=== PATIENT | female | born 1950 | race Caucasian/White ===

== ENCOUNTER 2019-01-18 10:50 | Observation (INO) | payer MEDICARE, SELFPAY ==
[~2019-01-18 10:50] MED LIST: ISOVUE-370 76%-LOCM 1 ML ONE
--- NOTE | 2019-01-18 14:57 | CT ---
CTA BRAIN WITH AND WITHOUT CONTRAST: History: Persistent dizziness. Technique: Noncontrast enhanced CT images of the brain obtained followed by contrast enhanced CTA car otid artery and intracranial CTA. 2D and 3D reconstructed images performed on an independent 3D works tation. FINDINGS: CT images of the brain unremarkable. The visualized lung parenchyma is unremarkable. The thyroid gland is unremarkable. The aortic arch is unremarkable. The right brachiocephalic artery is patent. The right and left common carotid arteries are patent. The right and left internal carotid and php consultant al carotid arteries are patent. Vertebral basilar system is unremarkable. ICA, WILD, MCA, and STARTING GATE DRIVER vessels are patent. IMPRESSION: Unremarkable CTA neck and intracranial CTA. POS: PENNY
[2019-01-18] MEDS ORDERED: Ondansetron ODT 4 MG TAB SL PRN (15:26)
[2019-01-18] MEDS ORDERED: Ondansetron PF 4 MG/2 ML Vial IVP PRN ×2 (15:26→15:32)
[2019-01-18] MEDS ORDERED: Acetaminophen 325 MG TAB PO PRN (15:26)
[2019-01-18] MEDS ORDERED: HYDROcodone/Acetaminophen 5/325 mg Tablet PO PRN ×2 (15:26)
[2019-01-18] MEDS ORDERED: hydrALAZINE 20 MG/ML VIAL SLOW IVP PRN (15:32)
[2019-01-18] MEDS ORDERED: Ondansetron ODT 4 MG TAB PO PRN (15:32)
[2019-01-18] MEDS ORDERED: Acetaminophen 500 MG TAB PO PRN (15:32)
[2019-01-18 16:02] VITALS: BMI 27.3
[2019-01-18] MEDS: Meclizine HCl 25 MG TAB PO SCH ×2 (18:28→23:45)
[2019-01-18] MEDS: Sodium Chloride 0.9% 1,000 ML IV SCH (18:30)
[2019-01-18] MEDS ORDERED: Prevnar 13-Val Conj/PF 0.5 ML SYRINGE IM ONE (20:00)
[2019-01-18] MEDS: Famotidine 20 MG TAB PO SCH (20:50)
--- NOTE | 2019-01-18 20:55 | HP ---
PRIMARY CARE PROVIDER: Dr. Zachary Wilson in [place], [place]. CHIEF COMPLAINT: Dizziness, nausea, and vomiting. HISTORY OF PRESENT ILLNESS: This is a 68-year-old female, who presented to [facility] Emergency Department in transfer from [facility] on 01/18/2019. The patient states she suddenly developed dizziness after working outside within the last 24 hours. She denied any head injury, recent dental procedures, high altitude travel, but does admit to some cold-type symptoms over the last 2-3 weeks. The patient states she has taken [id number] preparations including NyQuil with mild relief of her symptoms. The patient admitted to associated nausea and vomiting up to two episodes with the dizziness. The patient states that her symptoms were relieved by sitting down, closing her eyes, or lying back. When she attempted to open her eyes and sit up, she became very nauseated and extremely dizzy with the room spinning. The patient denies any other chronic change to her prescription medications and states she has been compliant with her blood pressure medicines. The patient denies any other family members with similar symptoms or even prior similar episodes. The patient denied any chest pain, jaw or left arm discomfort. The patient does admit to a long-standing history of tinnitus in the right ear. In the emergency room, the patient underwent general evaluation including CT imaging of the brain showing no acute process. Metabolic screening showed a low potassium of 3.2 and EKG was unrevealing. PAST MEDICAL HISTORY: 1. Tinnitus of the right ear. 2. Hypertension. 3. History of gastric mass status post resection. 4. Surgical menopause. PAST SURGICAL HISTORY: 1. Status post gastric mass with resection. 2. Status post bilateral oophorectomy. CURRENT MEDICATIONS: 1. Calcium carbonate 1 tablet p.o. daily. 2. Vitamin D3 1000 units p.o. daily. 3. Hydrochlorothiazide 12.5 mg p.o. daily. 4. Lisinopril 20 mg 1 tablet p.o. daily. 5. Melatonin 10 mg p.o. at bedtime p.r.n. ALLERGIES: NO KNOWN DRUG ALLERGIES. FAMILY HISTORY: Positive for hypertension. SOCIAL HISTORY: The patient resides in the [place], [place] area. No current alcohol, tobacco, or illicit drug use. Functional of all activities of daily living. Accompanied by her daughter and son-in-law in the hospital. REVIEW OF SYSTEMS: CONSTITUTIONAL: Negative for weight loss or gain, ability to conduct usual activities. SKIN: Negative for rash, itching. EYES: Negative for double vision, pain. ENT/MOUTH: Negative for nose bleeding, neck stiffness, pain, tenderness. CARDIOVASCULAR: Negative for palpitations, dyspnea on exertion, orthopnea. RESPIRATORY: Negative for shortness of breath, wheezing, cough, hemoptysis, fever or night sweats. GASTROINTESTINAL: Negative for poor appetite, abdominal pain, heartburn, nausea, vomiting, constipation, or diarrhea. GENITOURINARY: Negative for urgency, frequency, dysuria, nocturia. MUSCULOSKELETAL: Negative for pain, swelling. NEUROLOGIC/PSYCHIATRIC: Negative for anxiety, depression. ALLERGY/IMMUNOLOGIC: Negative for skin rash, bleeding tendency. Otherwise, negative except as stated per HPI. PHYSICAL EXAMINATION: VITAL SIGNS: On admission. Blood pressure 182/95, pulse 86, respiratory rate 18, temperature 98.3 degrees Fahrenheit, and O2 saturation 96% on room air. GENERAL APPEARANCE: This is a 68-year-old female, alert and oriented x3, responsive, in mild distress. HEENT: Pupils are equal, round, reactive to light and accommodation. Extraocular muscles are intact. Horizontal nystagmus noted. Nares patent. OP is clear. Teeth in good repair. Bilateral tympanic membranes clear bilaterally. NECK: Supple. No cervical adenopathy. No thyromegaly. No carotid bruits. No JVD appreciated. Cervical spine with full active and passive range of motion. No meningeal signs are appreciated. CHEST: Lungs are clear to auscultation bilaterally. CARDIOVASCULAR: S1, S2 without noted murmur, rub, or gallop. ABDOMEN: Rounded, soft, nontender, and nondistended. Bowel sounds are positive in all 4 quadrants. There is no hepatosplenomegaly. No abdominal bruits. No rebound or guarding appreciated. EXTREMITIES: Warm and dry with fair turgor. No clubbing, cyanosis, or asymmetric edema appreciated. Pulses are palpable distally at the dorsalis pedis, posterior tibial, and popliteal arteries bilaterally. Capillary refill is less than 2 seconds. NEUROLOGIC: Cranial nerves 2 through 12 are grossly intact. Horizontal nystagmus noted. The patient not observed ambulatory during this exam. LABORATORY REVIEW: Basic metabolic profile within normal limits. Potassium 3.2. CBC within normal limits. EKG dated 01/18/2019, by my review shows sinus mechanism with heart rates in the 80s. Normal R-wave progression noted. No acute ST-T wave changes appreciated. CT angiogram of the head and neck dated 01/18/2019, negative. ASSESSMENT/PLAN: 1. Benign paroxysmal positional vertigo. The patient will be observed on the telemetry unit. We will initiate intravenous normal saline at 100 mL/h. Start meclizine 25 mg p.o. q.6 hours. Education and reassurance given. No current evidence to suggest ischemic etiology. 2. Nausea and vomiting, secondary to #1. Clear liquids as tolerated. Zofran 4 mg IV q.6 hours p.r.n. Anticipate improvement in overall nausea and vomiting with resolution of vertigo. 3. Hypertension. Resume home antihypertensive regimen and monitor clinical response. 4. Hypokalemia. Mild. Potassium chloride supplementation and repeat potassium level in the a.m. 5. Prophylaxis. SCDs while in bed. Pepcid 20 mg p.o. b.i.d. 6. Code status is full. Surrogate medical decision maker is patient's daughter. Job ID: [id number]
[2019-01-19] MEDS: Sodium Chloride 0.9% 1,000 ML IV SCH (04:40)
[2019-01-19] MEDS: Meclizine HCl 25 MG TAB PO SCH ×3 (06:11→17:43)
[2019-01-19 07:03] LABS: Hemoglobin 13.4 g/dL (12.0-16.0); Mean Corpuscular HGB CONC 33.4 g/dL (32.0-36.0); Mean Corpuscular Hemoglobin 32.1 pg (27.0-31.0); Mean Corpuscular Volume 96.3 fL (78.0-98.0); Mean Platelet Volume 7.7 fL (7.4-10.4); Platelet Count 231 thou/uL (130-400); RBC Distribution Width 11.4 % (11.5-14.5); Red Blood Cell (RBC) Count 4.17 mill/uL (4.20-5.40); White Blood Cell (WBC) Count 7.2 thou/uL (4.8-10.8)
[2019-01-19 07:23] LABS: Anion Gap 11 mmol/L (10-20); BUN (Urea Nitrogen) 11 mg/dL (9.8-20.1); Calc. Creatinine Clearance 81 mL/min (70-130); Calcium 9.1 mg/dL (7.8-10.44); Carbon Dioxide 28 mmol/L (23-31); Chloride 105 mmol/L (98-107); Estimated GFR-MDRD 74; Glucose 95 mg/dL (80-115); Potassium 3.6 mmol/L (3.5-5.1); Sodium 140 mmol/L (136-145)
--- NOTE | 2019-01-19 09:09 | MRI ---
MRI BRAIN NONCONTRAST: INDICATIONS: Vertigo. Stroke. FINDINGS: There is no acute territorial infarct, intracranial mass effect, midline shift, or ventriculomegaly. There is mild chronic ischemic disease of the cerebral white matter. No hemorrhagic susceptibility is seen. The imaged skull base flow voids are patent. There is mild mucosal thickening of the paran srini sinuses and bilateral mastoid fluid, right greater than left. IMPRESSION: 1. No acute intracranial abnormalities. 2. Mild chronic ischemic disease. POS: TPC
[2019-01-19] MEDS: Famotidine 20 MG TAB PO SCH ×2 (09:50→21:53)
[2019-01-19 10:42] LABS: Eosinophils 2 % (0-10); Lymphocytes 30 % (21-51); MDiff Complete? YES; Monocytes 10 % (0-10); Neutrophil 54 % (42-75); RBC Morphology Normal; Reactive Lymphocytes 4 % (0-10)
[2019-01-19] MEDS ORDERED: Ibuprofen 200 MG TAB PO SCH (12:30)
--- NOTE | 2019-01-19 15:07 | PDOC.PN ---
- Subjective Encounter Start Date: 01/19/19 Encounter Start Time: 15:05 Subjective: Patient resting in bed. Complaining of mild right sided headache. -: 2/10 in severity. Has difficulty seeing due to blurred vision in left eye. -: Reports having slight improvement but still feeling dizzy at times. Yesterday had trouble walking due to dizziness. No further vomiting. Has not experienced anything like this before. Denies any chest pain or sob. No abdominal pain. No urinary symptoms. Denies any recent injuries. No slurred speech. No extremity weakness or facial numbness/drooping. - Objective Resuscitation Status - Order Detail: 01/18/19 15:26 Resuscitation Status Routine Resuscitation Status: FULL: Full Resuscitation Vital Signs & Weight: Vital Signs (12 hours) Temp Pulse Resp BP Pulse Ox 01/19/19 11:23 98.6 F 71 12 161/84 H 98 01/19/19 07:40 98.2 F 77 18 135/81 99 01/19/19 03:56 98.1 F 68 16 125/68 97 Weight Weight 164 lb 1 oz I&O: 01/18/19 01/19/19 01/20/19 06:59 06:59 06:59 Intake Total 1803 Output Total 3 Balance 1800 Result Diagrams: 01/19/19 06:30 01/19/19 06:30 Phys Exam - Physical Examination Constitutional: NAD Mild headache. No acute distress HEENT: PERRLA, moist MMs, sclera anicteric bilateral rotary nystagmus, occasional deviation of both eyes to LLQ Neck: full ROM Respiratory: clear to auscultation bilateral Cardiovascular: RRR Gastrointestinal: soft, non-tender, no distention Musculoskeletal: no edema Neurological: non-focal, normal sensation, moves all 4 limbs Power 5/5 in all limbs Psychiatric: normal affect, A&O x 3 Skin: no rash, normal turgor Dx/Plan (1) BPV (benign positional vertigo) Code(s): H81.10 - BENIGN PAROXYSMAL VERTIGO, UNSPECIFIED EAR Status: Acute Plan: Bilateral rotary nystagmus. Slight improvement of vertigo on Meclizine. Continue Meclizine, IVF and monitor. (2) Hypertension Code(s): I10 - ESSENTIAL (PRIMARY) HYPERTENSION Status: Chronic Qualifiers: Hypertension type: essential hypertension Qualified Code(s): I10 - Essential (primary) hypertension Plan: Resume home meds. Monitor BP. - Plan cont current plan of care, DVT proph w/lovenox, DVT proph w/SCDs Discussed with Dr. Horne who agrees with plan as above. * Vertiginous symptoms persistent with mild improvement. Will observe another 24h and monitor for improvement. Continue Meclizine, IVF's. May need referral for outpt vestibular rehab.
[2019-01-19] MEDS ORDERED: Melatonin 3 MG TAB PO PRN (16:32)
[2019-01-19] MEDS ORDERED: Lisinopril 20 MG TAB PO SCH (17:00)
[2019-01-20] MEDS: Meclizine HCl 25 MG TAB PO SCH ×3 (00:20→11:30)
[2019-01-20] MEDS: Sodium Chloride 0.9% 1,000 ML IV SCH (07:18)
[2019-01-20] MEDS: Famotidine 20 MG TAB PO SCH (08:06)
[2019-01-20 08:16] VITALS: TEMP 97.9
[2019-01-20] MEDS ORDERED: Lisinopril 20 MG TAB PO SCH (09:00)
[2019-01-20] MEDS ORDERED: Multivit, Therapeutic 1 TAB PO SCH (09:00)
[2019-01-20] MEDS ORDERED: Hydrochlorothiazide 25 MG TAB PO SCH (09:00)
[2019-01-20 12:18] VITALS: BP 125/70
--- NOTE | 2019-01-22 16:50 | EKG ---
Test Reason : Blood Pressure : / mmHG Vent. Rate : 094 BPM Atrial Rate : 094 BPM P-R Int : 188 ms QRS Dur : 076 ms QT Int : 410 ms P-R-T Axes : 067 -04 071 degrees QTc Int : 512 ms Normal sinus rhythm Left atrial enlargement Prolonged QT Abnormal ECG Confirmed by SONYA MAHAJAN DO ([id number]), newspaper or periodical editor DARRYL MCKEON ([id number]) on 01/22/2019 4:50:18 PM Referred By: Confirmed By:SONYA MAHAJAN DO
== END 2019-01-20 14:26 | disposition home or self-care (01) ==
LOC: ERS 10:50 → 2SW 15:29 → 2NO 01-19 11:30 → 2SW 01-19 11:33
PROVIDERS: ADMIT Family Medicine; ATTEND Family Medicine
DX: H81.10 Benign paroxysmal vertigo, unspecified ear (principal); I10 Essential (primary) hypertension; E87.6 Hypokalemia; Z79.899 Other long term (current) drug therapy; Z98.890 Other specified postprocedural states
CPT/HCPCS: 70496; 70498; 70551; 80048; 85007; 85027; 90670; 93005; 96360; 96361 ×2; 99285; G0009; G0378 ×2; 36415; 90471; Q9966